=== PATIENT | female | born 1995 | race African-American/Black ===

== ENCOUNTER 2018-02-09 23:39 | Emergency (ER) | payer SELFPAY ==
[2018-02-09 23:45] VITALS: BP 116/70; PULSE 100; TEMP 99.2; BMI 22.4
[2018-02-10] MEDS ORDERED: IBUPROFEN 600 MG TABLET (FP) PO ONE ×2 (00:08→00:34)
[2018-02-10] MEDS ORDERED: ALBUTEROL SO4 2.5/IPRATROPIUM 0.5 INH SOL 3 ML VIAL.NEB. NEB ONE ×2 (00:08→00:34)
--- NOTE | 2018-02-10 00:13 | PDOC ---
Attending Attestation - HPI HPI: 02/10/18 00:38 The patient is a 23 year old female, with a significant past medical history of asthma and migraines, who presents to the emergency department with, 1 day of sore throat, shortness of breath, nausea without emesis, and headache. As per patient, her symptoms has gotten persistently worse over the past 3 hours with associated pain when swallowing. She describes her headache as unilateral with associated tearing and photophobia. She attempted using her at home rescue inhaler, without relief. She notes positive sick contacts at work. She denies any phonophobia. She denies recent fevers, chills, or dizziness. She denies recent vomit, diarrhea or constipation. She denies recent dysuria, frequency, urgency or hematuria. She denies recent chest pain. Allergies: NKA Past surgical history: None reported. Social history: Nonsmoker. Denies EtOH use and recreational drug use. - Physicial Exam PE: 02/10/18 00:38 +GENERAL: Warm to touch. Awake, alert, and fully oriented, in no acute distress HEAD: No signs of trauma EYES: PERRLA, EOMI, sclera anicteric, conjunctiva clear +ENT: Right pharynx erythema. Fluid behind the right TM. Hearing grossly normal. Moist mucosa +NECK: R cervical lymphadenopathy. Normal ROM, supple, no JVD, or masses LUNGS: Breath sounds equal, clear to auscultation bilaterally. No wheezes, and no crackles +HEART: Tachycardic. Normal S1 and S2, no murmurs, rubs or gallops ABDOMEN: Soft, nontender, normoactive bowel sounds. No guarding, no rebound. No masses EXTREMITIES: Normal range of motion, no edema. No clubbing or cyanosis. No cords, erythema, or tenderness NEUROLOGICAL: Cranial nerves II through XII grossly intact. Normal speech, normal gait SKIN: Warm, Dry, normal turgor, no rashes or lesions noted. <Daniel Mulligan - Last Filed: 02/10/18 00:42> - Resident Resident Name: Gary Carlos - ED Attending Attestation I have performed the following: I have examined & evaluated the patient, The case was reviewed & discussed with the resident, I agree w/resident's findings & plan - Medical Decision Making 02/10/18 00:29 Pt will be hydrated and treated with antipyretics. She is tchy and dehydrated. 02/11/18 20:37 Pt improved and discharged home. <Celine Webb - Last Filed: 02/11/18 20:37> Attestations - Attestations 02/10/18 00:41 Documentation prepared by Daniel Mulligan, acting as medical collector for Celine Webb MD. <Daniel Mulligan - Last Filed: 02/10/18 00:42>
--- NOTE | 2018-02-10 00:20 | PDOC ---
History of Present Illness <Celine Webb - Last Filed: 02/10/18 01:36> - General History Source: Patient Exam Limitations: No Limitations - History of Present Illness Initial Comments: 02/10/18 00:12 23f with pmh of asthma and migraines presents to the ED for SOB, sore throat, nausea and headache for the past day. Hurts when swallows. The headache is unilateral and associated with tearing, photophobia and blurry vision. Denies sick contacts. Uses the asthma pump once in a while. <Gary Carlos - Last Filed: 02/10/18 01:39> - General Chief Complaint: Asthma Stated Complaint: ASTHMA Time Seen by Provider: 02/10/18 00:00 Past History <Celine Webb - Last Filed: 02/10/18 01:36> - Past Medical History Anemia: Yes Asthma: Yes COPD: No - Suicide/Smoking/Psychosocial Hx Smoking History: Never smoked <Gary Carlos - Last Filed: 02/10/18 01:39> - Past Medical History Allergies/Adverse Reactions: Allergies Allergy/AdvReac Type Severity Reaction Status Date / Time No Known Allergies Allergy Verified 02/09/18 23:44 Review of Systems - Review of Systems Able to Perform ROS?: Yes Is the patient limited Thai proficient: No Constitutional: No: Symptoms Reported HEENTM: Yes: Blurred Vision, Nose Congestion Respiratory: Yes: Shortness of Breath, SOB with Exertion. No: Cough Cardiac (ROS): No: Symptoms Reported ABD/GI: No: Symptoms Reported : No: Symptoms Reported Neurological: No: Symptoms reported All Other Systems: Reviewed and Negative <Gary Carlos - Last Filed: 02/10/18 01:39> *Physical Exam - Vital Signs Last Vital Signs Temp Pulse Resp BP Pulse Ox 99.2 F 100 H 18 116/70 98 02/09/18 23:43 02/09/18 23:43 02/09/18 23:43 02/09/18 23:43 02/09/18 23:43 <Celine Webb - Last Filed: 02/10/18 01:36> - Vital Signs Last Vital Signs Temp Pulse Resp BP Pulse Ox 99.2 F 100 H 18 116/70 98 02/09/18 23:43 02/09/18 23:43 02/09/18 23:43 02/09/18 23:43 02/09/18 23:43 - Physical Exam General Appearance: Yes: Nourished, Appropriately Dressed. No: Apparent Distress HEENT: positive: EOMI, SHINE, Normal ENT Inspection Respiratory/Chest: positive: Lungs Clear, Normal Breath Sounds. negative: Chest Tender, Respiratory Distress Cardiovascular: positive: Regular Rhythm, S1, S2, Tachycardia Gastrointestinal/Abdominal: positive: Normal Bowel Sounds, Flat, Soft. negative : Tender Musculoskeletal: positive: Normal Inspection. negative: CVA Tenderness Extremity: positive: Normal Capillary Refill, Normal Inspection, Normal Range of Motion Integumentary: positive: Normal Color, Dry, Warm Neurologic: positive: Fully Oriented, Alert, Normal Mood/Affect, Normal Response <Gary Carlos - Last Filed: 02/10/18 01:39> ED Treatment Course - ADDITIONAL ORDERS Additional order review: Laboratory Results 02/10/18 00:47 Urine HCG, Qual Negative 02/10/18 00:10 Group A Strep Rapid Antigen - Final Throat - Medications Given in the ED: ED Medications Discontinued Medications Generic Name Dose Route Start Last Admin Trade Name Ivanq PRN Reason Stop Dose Admin Albuterol/Ipratropium 1 amp 02/10/18 00:08 02/10/18 00:54 Duoneb - NEB 02/10/18 00:09 1 amp ONCE ONE Administration Sodium Chloride 1,000 mls @ 1,000 mls/hr 02/10/18 00:21 02/10/18 00:54 Normal Saline - IV 02/10/18 01:20 Not Given ASDIR STA Ibuprofen 600 mg 02/10/18 00:08 02/10/18 00:54 Motrin - PO 02/10/18 00:09 600 mg ONCE ONE Administration <Celine Webb - Last Filed: 02/10/18 01:36> - RADIOLOGY Radiology Studies Ordered: Category Date Time Status CHEST PA & LAT [RAD] Stat Radiology 02/10/18 00:08 Ordered <Gary Carlos - Last Filed: 02/10/18 01:39> Medical Decision Making - Medical Decision Making 02/10/18 00:28 - Likely viral URI - Duonebs - Upreg - CXR - rapid strep - Motrin for pain <Gary Carlos - Last Filed: 02/10/18 01:39> *DC/Admit/Observation/Transfer - Discharge Dispostion Decision to Admit order: No <Celine Webb - Last Filed: 02/10/18 01:36> <Gary Carlos - Last Filed: 02/10/18 01:39> Diagnosis at time of Disposition: Viral URI, Viral pharyngitis - Discharge Dispostion Disposition: HOME Condition at time of disposition: Stable - Patient Instructions Printed Discharge Instructions: DI for Viral Pharyngitis - Post Discharge Activity Forms/Work/School Notes: Back to Work
[2018-02-10] MEDS ORDERED: SODIUM CHLORIDE 1,000 ML IV STA (00:21)
--- NOTE | 2018-02-10 01:40 | PDOC ---
*Physical Exam - Vital Signs Last Vital Signs Temp Pulse Resp BP Pulse Ox 99.2 F 100 H 18 116/70 98 02/09/18 23:43 02/09/18 23:43 02/09/18 23:43 02/09/18 23:43 02/09/18 23:43 ED Treatment Course - ADDITIONAL ORDERS Additional order review: Laboratory Results 02/10/18 00:47 Urine HCG, Qual Negative 02/10/18 00:10 Group A Strep Rapid Antigen - Final Throat - Medications Given in the ED: ED Medications Discontinued Medications Generic Name Dose Route Start Last Admin Trade Name Robert PRN Reason Stop Dose Admin Albuterol/Ipratropium 1 amp 02/10/18 00:08 02/10/18 00:54 Duoneb - NEB 02/10/18 00:09 1 amp ONCE ONE Administration Sodium Chloride 1,000 mls @ 1,000 mls/hr 02/10/18 00:21 02/10/18 00:54 Normal Saline - IV 02/10/18 01:20 Not Given ASDIR STA Ibuprofen 600 mg 02/10/18 00:08 02/10/18 00:54 Motrin - PO 02/10/18 00:09 600 mg ONCE ONE Administration *DC/Admit/Observation/Transfer Diagnosis at time of Disposition: Viral URI, Viral pharyngitis - Discharge Dispostion Disposition: HOME Condition at time of disposition: Stable Decision to Admit order: No - Referrals - Patient Instructions Printed Discharge Instructions: DI for Viral Pharyngitis - Post Discharge Activity Forms/Work/School Notes: Back to Work
== END 2018-02-10 02:19 | disposition home or self-care (01) ==
LOC: JER 23:39
PROC: 3E0337Z Introduction of Electrolytic and Water Balance Substance into Peripheral Vein, Percutaneous Approach (ICD-10-PCS; principal; 2018-02-09)
PROC: 3E0F7GC Introduction of Other Therapeutic Substance into Respiratory Tract, Via Natural or Artificial Opening (ICD-10-PCS; 2018-02-09)
DX: J02.9 Acute pharyngitis, unspecified (principal); J06.9 Acute upper respiratory infection, unspecified
CPT/HCPCS: 84703; 87070; 87430; 99282-25; J7620